=== PATIENT | female | born 1955 | race African-American/Black ===

== ENCOUNTER → 2016-11-02 | Outpatient (CLI) | payer BC | LOC: RAD 13:39 | PROVIDERS: ATTEND Otolaryngology | DX: E01.0 Iodine-deficiency related diffuse (endemic) goiter (principal) | CPT/HCPCS: 76536 ==

== ENCOUNTER 2020-04-26 10:40 | Emergency (ER) | payer BC, MEDICARE ==
--- NOTE | 2020-04-26 11:27 | ER Document Report ---
ED Medical Screen (RME) - General Stated Complaint: CHEST PAIN,DIZZINESS Time Seen by Provider: 04/26/20 11:18 Primary Care Provider: AMIRA SANFORD DOC [Primary Care Provider] - Follow up as needed Notes: Patient presents complaining of chest pain that she describes as a heaviness for the past week. Patient reports dizziness which prompted her visit today. Patient reports a change in her breathing although denies shortness of breath. Patient denies any nausea or vomiting. Patient complains of pain to bilateral lower extremities although denies any edema. Patient does have a history of arthritis and hypertension. I have greeted and performed a rapid initial assessment of this patient. A comprehensive ED assessment and evaluation of the patient, analysis of test results and completion of the medical decision making process will be conducted by additional ED providers. TRAVEL OUTSIDE OF THE [place] IN LAST 30 DAYS: No - Related Data Allergies/Adverse Reactions: Penicillins Allergy (Verified 06/13/13 14:39) Past Medical History - Past Medical History Cardiac Medical History: Reports: Hx Hypertension Denies: Hx Coronary Artery Disease, Hx Heart Attack Pulmonary Medical History: Reports: Hx Pneumonia Denies: Hx Asthma, Hx Bronchitis, Hx COPD, Hx Tuberculosis Neurological Medical History: Denies: Hx Cerebrovascular Accident, Hx Seizures Musculoskeltal Medical History: Reports Hx Arthritis - RA Past Surgical History: Denies: Hx Hysterectomy, Hx Pacemaker - Immunizations Hx Diphtheria, Pertussis, Tetanus Vaccination: No Physical Exam - Vital signs Vitals: Temp Pulse Resp BP Pulse Ox 98.2 F 65 16 194/74 H 98 04/26/20 10:53 04/26/20 10:53 04/26/20 10:53 04/26/20 10:53 04/26/20 10:53 - Respiratory Respiratory status: No respiratory distress - Cardiovascular Rhythm: Regular Heart sounds: S1 appreciated, S2 appreciated Course - Vital Signs Vital signs: Temp Pulse Resp BP Pulse Ox 98.2 F 65 16 194/74 H 98 04/26/20 10:53 04/26/20 10:53 04/26/20 10:53 04/26/20 10:53 04/26/20 10:53 Doctor's Discharge - Discharge Referrals: JUVENAL,AMIRA DOC [Primary Care Provider] - Follow up as needed
[2020-04-26 12:03] LABS: ABSOLUTE EOSINOPHILS # (AUTO) 0.1 10^3/uL (0.0-0.6); ABSOLUTE LYMPHOCYTES (AUTO) 1.5 10^3/uL (0.5-4.7); ABSOLUTE MONOCYTES (AUTO) 0.4 10^3/uL (0.1-1.4); ABSOLUTE NEUT (AUTO) 2.3 10^3/uL (1.7-8.2); BASOPHILS % (AUTO) 0.4 % (0-2); EOSINOPHILS % (AUTO) 1.5 % (0-6); HEMOGLOBIN 13.4 g/dL (12.0-15.5); LYMPHOCYTES % (AUTO) 34.9 % (13-45); MEAN CORPUSCULAR HEMOGLOBIN 23.4 pg (27.0-33.4); MEAN CORPUSCULAR HGB CONC 32.8 g/dL (32.0-36.0); MEAN CORPUSCULAR VOLUME 71 fl (80-97); MONOCYTES % (AUTO) 10.1 % (3-13); PLATELET COUNT 230 10^3/uL (150-450); RED BLOOD COUNT 5.75 10^6/uL (3.72-5.28); RED CELL DISTRIBUTION WIDTH 15.9 % (11.5-14.0); SEGMENTED NEUTROPHILS % (AUTO) 53.1 % (42-78); TOTAL CELLS COUNTED % (AUTO) 100 %; WHITE BLOOD COUNT 4.4 10^3/uL (4.0-10.5)
--- NOTE | 2020-04-26 12:12 | RADIOLOGY REPORT (SQ) ---
EXAM DESCRIPTION: CHEST SINGLE VIEW IMAGES COMPLETED DATE/TIME: 04/26/2020 11:55 am REASON FOR STUDY: cp COMPARISON: Chest radiograph 08/21/2011 NUMBER OF VIEWS: One view. TECHNIQUE: Single frontal radiographic view of the chest acquired. LIMITATIONS: None. FINDINGS: LUNGS AND PLEURA: No opacities, masses or pneumothorax. No pleural effusion. MEDIASTINUM AND HILAR STRUCTURES: No masses. Contour normal. HEART AND VASCULAR STRUCTURES: Heart normal in size. Normal vasculature. BONES: No acute findings. HARDWARE: None in the chest. OTHER: No other significant finding. IMPRESSION: NO SIGNIFICANT RADIOGRAPHIC FINDING IN THE CHEST. TECHNICAL DOCUMENTATION: JOB ID: [id number] 2010 [email or web address] All Rights Reserved Reading location - IP/workstation name: [email or web address]
[2020-04-26 12:22] LABS: ALBUMIN 4.6 g/dL (3.5-5.0); ALKALINE PHOSPHATASE 122 U/L (38-126); ANION GAP 7 (5-19); ASPARTATE AMINO TRANSFERASE 33 U/L (14-36); BILIRUBIN,DIRECT 0.2 mg/dL (0.0-0.4); BILIRUBIN,TOTAL 0.7 mg/dL (0.2-1.3); BLOOD UREA NITROGEN 11 mg/dL (7-20); CALCIUM 9.7 mg/dL (8.4-10.2); CARBON DIOXIDE 31 mmol/L (22-30); CHLORIDE 102 mmol/L (98-107); CREATINE KINASE 123 U/L (30-135); GLUCOSE 98 mg/dL (75-110); POTASSIUM 3.8 mmol/L (3.6-5.0); TOTAL PROTEIN 7.7 g/dL (6.3-8.2)
[2020-04-26] MEDS ORDERED: ASPIRIN 325 MG TABLET PO ONE (17:54)
--- NOTE | 2020-04-26 17:57 | ER Document Report ---
ED General - General Chief Complaint: Chest Pain Stated Complaint: CHEST PAIN,DIZZINESS Time Seen by Provider: 04/26/20 11:18 Primary Care Provider: AMIRA SANFORD DOC [NO LOCAL MD] - Follow up as needed Notes: Patient is a 64-year-old -[place] female with a history of hypertension and hyperlipidemia who presents to the emergency department with a chief complaint of chest pain. She reports this began about a week ago. Describes it as this constant heaviness in the chest. Occasional sharp stabbing pains overlying. She states that for years she has had episodes where she feels like with breathing her heart will stop or skip a beat. She states that she was seen for this in the past and told that this was normal. She adds that she had a stress test many years ago which was normal. She reports that her mother of a [place] in her late 50s. Patient is a non-smoker, stopped in 1986. She denies any associated shortness of breath. Denies any numbness tingling or weakness. No cough or hemoptysis. No lower extremity swelling or calf tenderness. No recent travel, recent surgery or recent immobilization. No reports of hormone replacement therapy. No history of cancer. No history of DVT or PE. TRAVEL OUTSIDE OF THE [place] IN LAST 30 DAYS: No - Related Data Allergies/Adverse Reactions: Penicillins Allergy (Verified 06/13/13 14:39) Past Medical History - Social History Smoking Status: Former Smoker Chew tobacco use (# tins/day): No Frequency of alcohol use: Occasional Drug Abuse: None Family History: CAD - Past Medical History Cardiac Medical History: Reports: Hx Hypertension Denies: Hx Coronary Artery Disease, Hx Heart Attack Pulmonary Medical History: Reports: Hx Pneumonia Denies: Hx Asthma, Hx Bronchitis, Hx COPD, Hx Tuberculosis Neurological Medical History: Denies: Hx Cerebrovascular Accident, Hx Seizures Musculoskeletal Medical History: Reports Hx Arthritis - RA Past Surgical History: Denies: Hx Hysterectomy, Hx Pacemaker - Immunizations Hx Diphtheria, Pertussis, Tetanus Vaccination: No Hx Pneumococcal Vaccination: 05/03/14 Review of Systems - Review of Systems Constitutional: denies: Fever EENT: denies: Nose congestion Cardiovascular: denies: Orthopnea Respiratory: denies: Short of breath Gastrointestinal: denies: Poor appetite Genitourinary: denies: Incontinence Female Genitourinary: denies: Heavy/abnormal periods Musculoskeletal: denies: Neck pain Skin: denies: Dryness Hematologic/Lymphatic: denies: Easy bleeding Neurological/Psychological: denies: Weakness Physical Exam - Vital signs Vitals: Temp Pulse Resp BP Pulse Ox 98.2 F 65 16 194/74 H 98 04/26/20 10:53 04/26/20 10:53 04/26/20 10:53 04/26/20 10:53 04/26/20 10:53 - General General appearance: Appears well, Alert In distress: None - HEENT Head: Normocephalic, Atraumatic Eyes: Normal Pupils: PERRL Neck: Supple - Respiratory Respiratory status: No respiratory distress Chest status: Nontender Breath sounds: Normal Chest palpation: Normal - Cardiovascular Rhythm: Regular Heart sounds: Normal auscultation - Extremities General upper extremity: Normal inspection, Nontender, Normal color, Normal ROM, Normal temperature General lower extremity: Normal inspection, Nontender, Normal color, Normal ROM, Normal temperature, Normal weight bearing. No: Lucero's sign - Neurological Neuro grossly intact: Yes Cognition: Normal Orientation: AAOx4 - Psychological Associated symptoms: Normal affect, Normal mood - Skin Skin Temperature: Warm Skin Moisture: Dry Skin Color: Normal Course - Re-evaluation Re-evalutation: 04/26/20 19:18 EK:46 AM. Sinus rhythm at 64 bpm. Normal axis. Slight first-degree AV block. T wave inversion in lead III. No STEMI. Interpreted by myself in conjunction with ED attending. Repeat EKG at 1758: Sinus rhythm at 60 bpm. Largely unchanged from prior. Patient with 2 - troponins. Was given aspirin here. Has a heart score of 1. Low risk. She is felt to be stable and appropriate for discharge and outpatient follow-up with cardiology. She reports a chronic history of first-degree AV block. Will refer her to cardiology on- call, Dr. Ortiz. Discussed with her the importance of outpatient follow-up and advised that she return here or any ER immediately with any new, persistent or worsening symptoms. She verbalized understood and agreed. 04/26/20 19:20 04/26/20 19:21 - Vital Signs Vital signs: Temp Pulse Resp BP Pulse Ox 97.6 F 68 16 188/74 H 100 04/26/20 14:44 04/26/20 14:44 04/26/20 14:44 04/26/20 14:44 04/26/20 18:25 - Laboratory Result Diagrams: 04/26/20 11:38 04/26/20 11:38 Laboratory results interpreted by me: 04/26/20 04/26/20 11:38 11:38 RBC 5.75 H MCV 71 L MCH 23.4 L RDW 15.9 H Carbon Dioxide 31 H Discharge - Discharge Clinical Impression: Chest pain Qualifiers: Chest pain type: unspecified Qualified Code(s): R07.9 - Chest pain, unspecified Condition: Stable Disposition: HOME, SELF-CARE Instructions: Aspirin (Cardiac) (OM), Chest Pain of Unclear Cause (OM) Additional Instructions: Follow-up with your regular doctor in 2 to 3 days for reevaluation. Call the audit clerk on Monday morning to establish an appointment. Return here or any ER immediately with any new, persistent or worsening symptoms. Referrals: [facility] [NO LOCAL MD] - Follow up as needed TIFFANY ORTIZ MD [ACTIVE PROVISIONAL STAFF] - Follow up as needed
--- NOTE | 2020-04-26 19:15 | EKG REPORT ---
SEVERITY:- ABNORMAL ECG - SINUS RHYTHM FIRST DEGREE AV BLOCK CONSIDER LEFT VENTRICULAR HYPERTROPHY : Confirmed by: Raul Echeverria MD 26-Apr-2020 19:14:54
--- NOTE | 2020-04-26 19:15 | EKG REPORT ---
SEVERITY:- ABNORMAL ECG - SINUS RHYTHM LEFT VENTRICULAR HYPERTROPHY : Confirmed by: Raul Echeverria MD 26-Apr-2020 19:15:05
[2020-04-26 19:43] VITALS: BP 175/85
== END 2020-04-26 19:44 | disposition home or self-care (01) ==
LOC: ER 10:40
DX: R07.9 Chest pain, unspecified (principal); I44.0 Atrioventricular block, first degree; I10 Essential (primary) hypertension; Z87.891 Personal history of nicotine dependence; Z88.0 Allergy status to penicillin; Z82.49 Family history of ischemic heart disease and other diseases of the circulatory system
CPT/HCPCS: 36415; 71045; 80053; 82550; 83735; 84484; 85025; 93005; 93010; 99285